=== PATIENT | male | born 1965 | race Caucasian/White ===

== ENCOUNTER 2017-04-17 14:49 | Emergency (ER) | payer MEDICAID ==
[~2017-04-17] VITALS: Ht 177.8 cm; Wt 82.0 kg
[2017-04-17] MEDS ORDERED: ONDANSETRON HCL 4MG/2ML VIAL IV STA (20:20)
[2017-04-17] MEDS ORDERED: KETOROLAC 30MG/ML VIAL IV STA (20:20)
[2017-04-17] MEDS ORDERED: SODIUM CHLORIDE 0.9% 1,000 ML IV ONE (20:20)
[2017-04-17 20:52] LABS: BASOPHILS % 0.6 % (0.0-2.0); HEMATOCRIT. 42.8 % (42.0-52.0); HEMOGLOBIN. 14.8 g/dL (14.0-18.0); MEAN CORPUSCULAR HEMOGLOBIN 30.7 pg (28.0-32.0); MEAN CORPUSCULAR VOLUME 88.6 fL (80.0-94.0); MEAN PLATELET VOLUME 8.5 fl (7.4-10.4); MONOCYTES % 14.2 % (2.0-8.0); NEUTROPHILS % 64.2 % (40.0-76.0); PLATELET 221 x1000/uL (130-400); RED BLOOD CELL COUNT 4.83 mill/uL (4.7-6.1); RED CELL DISTRIBUTION WIDTH 12.7 % (11.6-14.6)
[2017-04-17 20:58] LABS: CHLORIDE 102 mEq/L (98-107); ETHANOL BLOOD < 10 mg/dL
[2017-04-17 21:04] LABS: TROPONIN I 0.02 ng/mL (0.00-0.04)
[2017-04-17] MEDS: POTASSIUM BICARB/CIT ACID 25 MEQ TABLET.EFF PO NR ×2 (21:54→22:58)
[2017-04-17] MEDS ORDERED: SODIUM CHLORIDE 0.9% 1000ML BAG (SEPSIS BOLUS) IV ONE (22:45)
[2017-04-17] MEDS ORDERED: CEFTRIAXONE 1 G PREMIX 50 ML IV ONE (22:45)
[2017-04-17] MEDS ORDERED: AZITHROMYCIN 500 MG in DEXT 5% WATER 250 ML IV ONE (22:45)
[2017-04-17] MEDS ORDERED: HYDRALAZINE 20MG/ML VIAL IV SCH (22:52)
[2017-04-18 02:01] VITALS: BP 132/81
== END 2017-04-18 02:05 | disposition home or self-care (01) ==
LOC: ER 15:02
DX: J18.9 Pneumonia, unspecified organism (principal); I11.0 Hypertensive heart disease with heart failure; I50.9 Heart failure, unspecified; E87.6 Hypokalemia; E87.2 Acidosis; F17.200 Nicotine dependence, unspecified, uncomplicated
CPT/HCPCS: 36415; 71045; 74176; 80053; 83605; 83690; 83880; 84484; 85025; 87040; 87804; 93005; 96361; 96365; 96366; 96375; 99285; G0482; J0456; J0696; J1885; J2405; J7030; Z7610; J0360; J7060

== ENCOUNTER 2021-09-09 07:30 | Emergency (ER) | payer MEDICAID ==
[~2021-09-09] VITALS: Ht 167.6 cm; Wt 75.0 kg
[2021-09-09 09:00] VITALS: BP 126/97
== END 2021-09-09 09:01 | disposition home or self-care (01) ==
LOC: ER 07:33
DX: H11.31 Conjunctival hemorrhage, right eye (principal); I10 Essential (primary) hypertension; Z98.890 Other specified postprocedural states
CPT/HCPCS: 99281